=== PATIENT | male | born 1970 | race African-American/Black ===

== ENCOUNTER 2024-04-06 12:46 | Emergency (ER) | payer BC ==
[~2024-04-06] VITALS: Ht 165.1 cm; Wt 93.0 kg
[2024-04-06] MEDS ORDERED: AMLODIPINE BESYL5 MG (13:35)
[2024-04-06] MEDS ORDERED: ROSUVASTATIN CAL5 MG (13:35)
[2024-04-06] MEDS ORDERED: LOSARTAN-HCTZ1 EAC1 (13:35)
[2024-04-06] MEDS ORDERED: CEFTRIAXONE SODIUM 1,000 MG VIAL IM STA (14:51)
[2024-04-06] MEDS ORDERED: KETOROLAC TROMETHAMINE 15 MG VIAL IM STA (14:51)
[2024-04-06] MEDS ORDERED: KETOROLAC TROMETHAMINE 30 MG VIAL ONE (14:54)
[2024-04-06] MEDS ORDERED: CEFTRIAXONE SODIUM 1,000 MG VIAL ONE (14:55)
[2024-04-06] MEDS ORDERED: CEPHALEXIN500 MG PO (15:07)
[2024-04-06] MEDS ORDERED: ADVIL DUAL ACT1 EACH PO (15:07)
== END 2024-04-06 15:19 | disposition home or self-care (01) ==
LOC: ER 12:47
DX: L03.012 Cellulitis of left finger (principal); I10 Essential (primary) hypertension